=== PATIENT | female | born 1935 | race Caucasian/White ===

== ENCOUNTER 2016-10-09 12:09 | Emergency (ER) | payer MEDICARE, OTHER ==
[~2016-10-09] VITALS: Ht 160 cm; Wt 53.0 kg
[~2016-10-09 12:09] MED LIST: ALDACTONE 25MG25 M1 PO; ARICEPT 5MG PO; ASPIRIN 81M81 MG/TA2 PO; ASPIRIN E.C. 8181 MG PO; AVALIDE 12.5 MG1 TAB PO; AVAPRO300 M1 PO; BISMUTH262 MG SL; CARDIZEM CD 24240 MG PO; CEFTIN 250250 MG/TAB PO; CELEXA 20MG20 MG/TAB PO; CELEXA40 MG PO; CRESTOR5 MG PO; LASIX 20MG TABL20 MG PO; LEVAQUIN 5500 MG/TA1 PO; LEVOXYL0.1 MG PO; LEVOXYL0.125 MG PO; LIPITOR 10MG10 MG PO; LOPRESSOR 225 MG/TAB PO; LUTEIN PO; MULTIVITAMIN1 CTB PO; NITROSTAT0.4 MG/TAB SL; PEPTO BISMOL262 MG PO; PLAVIX 75MG TAB75 MG PO; PRIL40 PO; PRINIVIL5 MG PO; PROTONIX 40MG T40 MG PO; QUESTRAN4 GM/9 GM PO; SYNTHROID0.1 MG/TAB PO; SYNTHROID0.112 MG/T PO; VISION FORMULA1 TAB PO; VITAMIN D31000 IU PO; [UNRECOGNIZED DRUG - CODE] PO
[2016-10-09 12:10] VITALS: BP 150/72; TEMP 97.7
[2016-10-09 13:50] VITALS: PULSE 67
== END 2016-10-09 14:00 | disposition home or self-care (01) ==
LOC: COL.ER 12:09
DX: S09.90XA Unspecified injury of head, initial encounter (principal); S30.0XXA Contusion of lower back and pelvis, initial encounter; S00.03XA Contusion of scalp, initial encounter; S50.812A Abrasion of left forearm, initial encounter; Z79.2 Long term (current) use of antibiotics; W01.198A Fall on same level from slipping, tripping and stumbling with subsequent striking against other object, initial encounter; Y92.008 Other place in unspecified non-institutional (private) residence as the place of occurrence of the external cause

== ENCOUNTER 2016-11-12 09:35 | Emergency (ER) | payer MEDICARE, OTHER ==
[~2016-11-12] VITALS: Ht 160 cm; Wt 50.0 kg
[2016-11-12 09:39] VITALS: BP 127/66; PULSE 66; TEMP 97.5
[2016-11-12] MEDS ORDERED: PERCOCET 325 MG1 TAB PO (09:58)
[2016-11-12] MEDS ORDERED: MIRALAX PA17 GM/Dose PO (09:58)
== END 2016-11-12 12:05 | disposition home or self-care (01) ==
LOC: COL.ER 09:35
DX: K59.00 Constipation, unspecified (principal); Z79.891 Long term (current) use of opiate analgesic; Z95.1 Presence of aortocoronary bypass graft; I51.9 Heart disease, unspecified

== ENCOUNTER → 2017-01-18 | Outpatient (REF) ==
[~2017-01-18] MED LIST changes: +MIRALAX PA17 GM/Dose PO; +PERCOCET 325 MG1 TAB PO
== END ==
LOC: ZCOL.LAB 12:44
DX: Z01.89 Encounter for other specified special examinations (principal)

== ENCOUNTER → 2017-01-19 | Outpatient (REF) | LOC: ZCOL.LAB 10:09 | DX: Z01.89 Encounter for other specified special examinations (principal) ==

== ENCOUNTER → 2017-02-18 | Outpatient (CLI) | payer MEDICARE, OTHER | LOC: COL.RAD 10:03 | DX: R74.8 Abnormal levels of other serum enzymes (principal); Z90.49 Acquired absence of other specified parts of digestive tract ==

== ENCOUNTER 2017-05-22 12:12 | Emergency (ER) | payer MEDICARE, OTHER ==
[~2017-05-22] VITALS: Ht 157.5 cm; Wt 55.9 kg
[2017-05-22 12:20] VITALS: TEMP 97.5
[2017-05-22 13:13] LABS: BASO % 0.6 % (0.0-2.0); EOS # 0.1 (0.0-0.7); EOS % 0.8 % (0-4.0); GRAN # 4.5 (1.4-6.5); GRAN % 67.9 % (42.2-75.2); LYMPH # 1.5 (1.2-3.4); LYMPH % 22.8 % (20.0-51.0); MEAN CELL VOLUME 92 fl (80.0-100.0); MEAN CORPUSCULAR HGB CONC 30 g/dl (33.0-37.0); MEAN PLATELET VOLUME 10.4 fl (7.4-10.4); MONO # 0.5 (0.1-0.6); MONO % 7.6 % (1.7-9.3); PLATELET COUNT 238 K/mm3 (130-400); WHITE BLOOD COUNT 6.6 K/mm3 (4.8-10.8)
[2017-05-22 13:14] LABS: HEMATOCRIT 32.1 % (37.0-47.0); HEMOGLOBIN 9.6 g/dl (12.5-16.0); MEAN CORPUSCULAR HEMOGLOBIN 27 pg (27.0-31.0)
[2017-05-22 13:16] LABS: INR 1.4 (0.8-3.0); PROTHROMBIN TIME 15.2 SECONDS (9.7-12.8)
[2017-05-22 13:19] LABS: PARTIAL THROMBOPLASTIN TIME 35.3 SECONDS (26.0-37.0)
[2017-05-22 13:23] LABS: ADJUSTED CALCIUM 9.2 mg/dL (8.4-10.2); ALBUMIN 3.7 gm/dL (3.5-5.0); BILIRUBIN,TOTAL 0.8 mg/dL (0.0-1.0); CREATININE, serum 1.18 mg/dL (0.52-1.25); POTASSIUM 4.1 mmol/L (3.4-5.0); TOTAL PROTEIN 6.5 gm/dL (6.4-8.2)
[2017-05-22 13:35] LABS: TROPONIN-I 0.031 ng/mL (0.000-0.034)
[2017-05-22 16:54] VITALS: BP 171/87; PULSE 63
== END 2017-05-22 17:07 | disposition home or self-care (01) ==
LOC: COL.ER 12:12
PROVIDERS: Emergency Medicine
DX: J20.9 Acute bronchitis, unspecified (principal); R79.89 Other specified abnormal findings of blood chemistry; I11.0 Hypertensive heart disease with heart failure; I50.9 Heart failure, unspecified; I25.10 Atherosclerotic heart disease of native coronary artery without angina pectoris; E03.9 Hypothyroidism, unspecified; Z86.73 Personal history of transient ischemic attack (TIA), and cerebral infarction without residual deficits; Z79.82 Long term (current) use of aspirin; Z79.02 Long term (current) use of antithrombotics/antiplatelets; Z95.0 Presence of cardiac pacemaker; Z95.2 Presence of prosthetic heart valve
CPT/HCPCS: J1940

== ENCOUNTER → 2018-04-24 | Outpatient (CLI) | payer MEDICARE, OTHER | LOC: COL.RAD 10:30 | DX: R94.5 Abnormal results of liver function studies (principal); R74.0 Nonspecific elevation of levels of transaminase and lactic acid dehydrogenase [LDH]; Z90.49 Acquired absence of other specified parts of digestive tract ==

== ENCOUNTER 2018-07-16 13:44 | Emergency (ER) | payer MEDICARE, OTHER ==
[~2018-07-16] VITALS: Ht 157.5 cm; Wt 54.1 kg
[~2018-07-16 13:44] MED LIST changes: +LEVOXYL0.088 MG PO; -LEVOXYL0.1 MG PO; -LOPRESSOR 225 MG/TAB PO; +TOPROL XL 25MG25 MG PO
[2018-07-16 13:46] VITALS: TEMP 98.7
[2018-07-16 14:55] LABS: BASO % 0.3 % (0.0-2.0); EOS # 0.1 (0.0-0.7); EOS % 1.8 % (0-4.0); GRAN # 5.6 (1.4-6.5); GRAN % 74.9 % (42.2-75.2); HEMOGLOBIN 10.9 g/dl (12.5-16.0); LYMPH # 0.9 (1.2-3.4); LYMPH % 12.1 % (20.0-51.0); MEAN CELL VOLUME 95 fl (80.0-100.0); MEAN CORPUSCULAR HEMOGLOBIN 30 pg (27.0-31.0); MEAN CORPUSCULAR HGB CONC 31 g/dl (33.0-37.0); MEAN PLATELET VOLUME 10.5 fl (7.4-10.4); MONO # 0.8 (0.1-0.6); MONO % 10.6 % (1.7-9.3); PLATELET COUNT 168 K/mm3 (130-400); RED BLOOD COUNT 3.68 M/mm3 (4.10-5.30); REDCELL DISTRIBUTION WIDTH-CV 13.8 % (11.5-14.5)
[2018-07-16 14:57] LABS: HEMATOCRIT 34.8 % (37.0-47.0)
[2018-07-16 14:59] LABS: INR 1.5 (0.8-3.0); PROTHROMBIN TIME 16.6 SECONDS (9.7-12.8)
[2018-07-16 15:08] LABS: ALBUMIN 3.3 gm/dL (3.5-5.0); BILIRUBIN,TOTAL 0.7 mg/dL (0.0-1.0); C-REACTIVE PROTEIN 2.1 mg/dL (0.0-0.9); CALCIUM 8.6 mg/dL (8.4-10.2); CREATININE, serum 1.51 mg/dL (0.52-1.25); POTASSIUM 3.6 mmol/L (3.4-5.0); TOTAL PROTEIN 6.2 gm/dL (6.4-8.2)
[2018-07-16] MEDS ORDERED: ARICEPT10 MG PO (15:51)
[2018-07-16] MEDS ORDERED: SANCTURA20 MG PO (15:52)
[2018-07-16] MEDS ORDERED: ELIQUIS 2.5 PO (15:52)
[2018-07-16 15:59] LABS: COLLECTION METHOD CLEAN CATCH
[2018-07-16] MEDS ORDERED: NAMENDA 10MG TA10 MG PO (15:59)
[2018-07-16] MEDS ORDERED: OCUVITE ADULT 51 SGL PO (16:00)
[2018-07-16 16:18] LABS: MUCOUS Present /lpf; PH 5 (5-8); SQUAMOUS EPITHELIAL 0-2 /hpf; URINE APPEARANCE Clear; URINE BACTERIA Rare /hpf; URINE BILIRUBIN Negative (NEGATIVE); URINE BLOOD 2+ (NEGATIVE); URINE COLOR Yellow; URINE GLUCOSE Negative (NEGATIVE); URINE KETONE Negative (NEGATIVE); URINE LEUKOCYTE ESTERASE Trace (NEGATIVE); URINE NITRATE Negative (NEGATIVE); URINE PROTEIN(semi-quant) Negative (NEGATIVE); URINE RBC 0-2 /hpf; URINE UROBILINOGEN Negative (NEGATIVE)
[2018-07-16] MEDS ORDERED: ANUSOL-HC SUPPO25 MG RC (16:28)
[2018-07-16 16:50] VITALS: BP 155/86; PULSE 60
[2018-07-17] MEDS ORDERED: MACROBID 1100 MG/CAP PO (15:53)
== END 2018-07-16 17:00 | disposition home or self-care (01) ==
LOC: COL.ER 13:44
PROVIDERS: Family Medicine
DX: K92.2 Gastrointestinal hemorrhage, unspecified (principal); K64.8 Other hemorrhoids; I10 Essential (primary) hypertension; I25.10 Atherosclerotic heart disease of native coronary artery without angina pectoris; I50.9 Heart failure, unspecified; Z79.82 Long term (current) use of aspirin; Z79.01 Long term (current) use of anticoagulants
CPT/HCPCS: J2405; J7030; Q9967

== ENCOUNTER 2020-05-19 14:52 | Inpatient (IN) | payer MEDICARE, OTHER ==
[~2020-05-19] VITALS: Ht 165.1 cm; Wt 61.0 kg
[~2020-05-19 14:52] MED LIST changes: +ANUSOL-HC SUPPO25 MG RC; +ARICEPT10 MG PO; +BIDIL 37.5 MG-21 TAB PO; +CARAFATE 1GM1 G PO; +ELIQUIS 2.5 PO; +MACROBID 1100 MG/CAP PO; +METAMUCIL MUL0.52 GM PO; +NAMENDA 10MG TA10 MG PO; +OCUVITE ADULT 51 SGL PO; +SANCTURA20 MG PO
[2020-05-19 16:08] LABS: BASO % 0.4 % (0.0-2.0); EOS % 0.4 % (0-4.0); GRAN # 3.6 (1.4-6.5); GRAN % 66.9 % (42.2-75.2); HEMOGLOBIN 13.7 g/dl (12.5-16.0); LYMPH # 0.7 (1.2-3.4); LYMPH % 13.8 % (20.0-51.0); MEAN CELL VOLUME 101 fl (80.0-100.0); MEAN CORPUSCULAR HEMOGLOBIN 32 pg (27.0-31.0); MEAN CORPUSCULAR HGB CONC 32 g/dl (33.0-37.0); MEAN PLATELET VOLUME 10.6 fl (7.4-10.4); MONO % 18.1 % (1.7-9.3); PLATELET COUNT 122 K/mm3 (130-400); RED BLOOD COUNT 4.26 M/mm3 (4.10-5.30); REDCELL DISTRIBUTION WIDTH-CV 12.5 % (11.5-14.5)
[2020-05-19 16:14] LABS: ALANINE AMINOTRANSFERASE 35 U/L (4-34); ALBUMIN 4.1 gm/dL (3.5-5.0); ALKALINE PHOSPHATASE 67 U/L (50-136); ANION GAP 8 mmol/L (7-16); AST,SGOT 44 U/L (15-37); BILIRUBIN,TOTAL 0.5 mg/dL (0.0-1.0); BLOOD UREA NITROGEN 34 mg/dL (7-17); C-REACTIVE PROTEIN < 0.5 mg/dL (0.0-0.9); CARBON DIOXIDE 27 mmol/L (22-30); CHLORIDE 101 mmol/L (98-107); CREATININE, serum 1.89 (0.52-1.25); GLUCOSE 95 mg/dL (74-106); POTASSIUM 4.3 mmol/L (3.4-5.0); SODIUM 137 mmol/L (137-145); TOTAL PROTEIN 7.3 gm/dL (6.4-8.2)
[2020-05-19 16:16] LABS: COLLECTION METHOD CLEAN CATCH
[2020-05-19 16:22] LABS: TROPONIN-I 0.015 ng/mL (0.000-0.035)
[2020-05-19 16:26] LABS: MUCOUS Present /lpf; PH 5 (5-8); URINE APPEARANCE Cloudy; URINE BACTERIA Moderate /hpf; URINE BILIRUBIN Negative (NEGATIVE); URINE BLOOD 1+ (NEGATIVE); URINE COLOR Yellow; URINE GLUCOSE Negative (NEGATIVE); URINE KETONE Negative (NEGATIVE); URINE LEUKOCYTE ESTERASE 3+ (NEGATIVE); URINE NITRATE Negative (NEGATIVE); URINE PROTEIN(semi-quant) Negative (NEGATIVE); URINE UROBILINOGEN Negative (NEGATIVE)
[2020-05-19] MEDS ORDERED: BUMEX 1MG TA1 MG/TA1 PO (17:06)
[2020-05-19] MEDS ORDERED: DRISDOL50000 IU PO (17:07)
[2020-05-19] MEDS ORDERED: CELEXA40 MG PO (17:07)
[2020-05-19] MEDS ORDERED: ARICEPT10 MG PO (17:07)
[2020-05-19] MEDS ORDERED: FERROUS SU325 MG/TAB PO (17:08)
[2020-05-19] MEDS ORDERED: ISORDIL 20MG20 M1 PO (17:08)
[2020-05-19] MEDS ORDERED: NAMENDA 10MG TA10 MG PO (17:08)
[2020-05-19] MEDS ORDERED: TOPROL XL 50MG50 MG PO (17:09)
[2020-05-19] MEDS ORDERED: K-TAB20 PO (17:10)
[2020-05-19] MEDS ORDERED: FENTANYL 12MCG TD (17:13)
[2020-05-19 18:00] VITALS: BP 123/65; PULSE 59; TEMP 97.9
--- NOTE | 2020-05-19 19:16 | NUR ---
Patient alert and oriented to self. obeys verbal command. on 2l O2 via NC. RUL-wheezing during inhale, other lung tran sound clear. patient incontinent of urine.
--- NOTE | 2020-05-19 19:39 | NUR ---
Received report from Lis,ER nurse that patient have Fentanyl patch with IV fluid. This RN checked. Patient have Fentanyl patch on her lower back, IV NS 60mL/HR. patient appear comfortable in bed. Bed alarm on. Report given to MAX Rivera.
[2020-05-19 20:40] VITALS: BP 162/87; PULSE 59; TEMP 97.5
[2020-05-20 01:34] VITALS: BP 146/87; PULSE 60; TEMP 98
[2020-05-20 04:16] VITALS: BP 149/96; PULSE 60; TEMP 98
--- NOTE | 2020-05-20 08:00 | NUR ---
Pt had uneventful night. She slept the majority of the night, and only woke to the staff entering her room to get vitals or draw blood. Pt is pleasantly forgetful. She denies any pain or discomfort at this time. No further concerns. Report given to MAX Almonte who will continue the care of this patient.
[2020-05-20 08:20] VITALS: BP 122/70; PULSE 59; TEMP 96.7
--- NOTE | 2020-05-20 08:30 | NUR ---
PT PLEASANT, PT APPEARS CONFUSED BUT ANSWERS ORIENTATION QUESTIONS APPROPRIATELY. PT FAMILY UPDATED. PT BRIEF CHANGED AND PERICARE PROVIDED, VITALS TAKEN, MEDICATIONS GIVEN 2 AT A TIME WITH SIPS OF WATER, ASSESSMENT PERFORMED, FLUIDS RUNNING AT 60ML/HR. NO OTHER NEEDS.
[2020-05-20 12:07] VITALS: BP 114/76; PULSE 59; TEMP 97.5
--- NOTE | 2020-05-20 14:43 | NUR ---
NOTIFIED DR. TANG THAT PT'S SON WANTS AN UPDATE.
--- NOTE | 2020-05-20 16:04 | NUR ---
The patient is positive for COVID and has baseline dementia. SW contacted the patient's , Angel, to complete intake. The patient's son, Angel (ph#[phone]), answered the phone. Angel states that his dad is next to him. The patient lives in [place] with her , son (Angel), [id number], and grandson. Angel reports that the patient needs assistance with ADLs and has a walker and wheelchair. Angel states that him and the rest of the family help her with her ADLs. The patient's PCP is Dr. Damion Kenney and he receives his medications from [facility]. Angel reports no difficulties obtaining his meds. The patient's and son report that the patient does not have a DPOA-HC completed. Angel reports that they do not have any concerns about the patient returning back home with them upon discharge. They all went and got tested for COVID yesterday. Angel states that his is a MANAGER PE[employer] and his oldest daughter is an RN. He had no other questions for SW at this time. The patient is currently on 2 liters of oxygen. ANUSHA to continue to follow.
[2020-05-20 16:57] VITALS: BP 106/54; PULSE 55; TEMP 97.8
--- NOTE | 2020-05-20 17:09 | NUR ---
PT PLEASANT, PT PLEASANTLY CONFUSED BUT ANSWERS ORIENTATION QUESTIONS APPROPRIATELY, PT C/O BACK PAIN IN MORNING RESOLVED WITH TYLENOL. PT SWALLOWS PILLS 2 AT A TIME WITH WATER. PT NEURO CHECKS STABLE. PT ON 2L SATTING WELL, NO SOB, PT INC IN BRIEF AND PERICARE PROVIDED. NO OTHER NEEDS AT THIS TIME.
[2020-05-20 20:00] VITALS: BP 142/78; PULSE 59; TEMP 98
--- NOTE | 2020-05-20 20:00 | NUR ---
Assessment complete. Patient complains of mild lower back pain which is treated with Tylenol. She answers all orientation questions correctly but also appears confused, as her conversation is sometimes irrelevant. She is tolerating breathing on room air well and is afebrile.
[2020-05-21 00:26] VITALS: BP 130/62; PULSE 59; TEMP 98.3
[2020-05-21 04:51] VITALS: BP 124/63; PULSE 60; TEMP 98
[2020-05-21 06:59] LABS: ALBUMIN 3.8 gm/dL (3.5-5.0); BILIRUBIN,TOTAL 0.4 mg/dL (0.0-1.0); CALCIUM 8.7 mg/dL (8.4-10.2); CREATININE, serum 1.27 (0.52-1.25); POTASSIUM 4.3 mmol/L (3.4-5.0); TOTAL PROTEIN 6.9 gm/dL (6.4-8.2)
[2020-05-21 08:07] VITALS: BP 127/66; PULSE 81; TEMP 97.8
--- NOTE | 2020-05-21 08:56 | NUR ---
PT PLEASANT, ANSWERS ORIENTATION QUESTIONS APPROPRIATELY, PT DID NOT KNOW CURRENT DAY, SHE GUESSED SATURDAY. PT LUNGS CLEAR, BS PRESENT, IV INTACT W/ NO ERYTHEMA OR DRAINAGE, ASSESSMENT PERFORMED, VITALS REVIEWED, PT UTILIZED BED ROGERS THIS MORNING. C/O PAIN 6/10 IN LOW BACK, TOO EARLY FOR TYLENOL AT THIS TIME. PT GOLD LEAF ROLLER EQUAL, PT ABLE TO HOLD UP ARMS AND LEGS. NO OTHER NEEDS.
--- NOTE | 2020-05-21 10:40 | NUR ---
PT SON UPDATED. ENTERED PT ROOM FOR NEURO CHECK. PT KNEW SHE WAS IN THE HOSPITAL BUT DID NOT KNOW WHETHER SHE WAS IN [place] OR [place]. PT KNEW THE MONTH BUT THOUGHT IT WAS SATURDAY. PT REORIENTED TO CURRENT PLACE AND TIME AND SITUATION. MARKETING PRODUCTION COORDINATOR EQUAL, ALL LIMBS STRONG. NUMBER FOR PT'S DIALED FOR PT IN THE ROOM. NO OTHER NEEDS.
[2020-05-21 12:11] VITALS: BP 122/62; PULSE 63; TEMP 97.5
--- NOTE | 2020-05-21 12:59 | NUR ---
[employer]ant called patient and offered prayer on the phone.
[2020-05-21] MEDS ORDERED: RT Albuterol HFA MDI IH (13:42)
[2020-05-21] MEDS ORDERED: TYLENOL 325MG325 MG PO (13:42)
[2020-05-21] MEDS ORDERED: DECADRON6 MG PO (13:45)
[2020-05-21] MEDS ORDERED: OMNICEF 300MG300 MG PO (13:50)
--- NOTE | 2020-05-21 14:22 | NUR ---
BRIAN, PT , CONTACTED FOR DISCHARGE EDUCATION. PT VERBALLY ACKNOWLEDGED UNDERSTANDING.
[2020-05-21] MEDS ORDERED: CELEXA 20MG20 MG/TAB PO (15:25)
--- NOTE | 2020-05-21 15:26 | NUR ---
PT TAKEN OUT VIA WHEELCHAIR TO PT SON, [place], CAR. PT'S SON GIVEN DISCHARGE EDUCATION PACKET, EDUCATED ON NEW MEDICATIONS AND DR. MCCABE TIMES. EDUCATED ON PERSCRIPTIONS CALLED INTO [facility]. NO OTHER NEEDS. IV DISCONTINUED.
== END 2020-05-21 15:25 | disposition home or self-care (01) | DRG 177 ==
LOC: COL.ER 14:52 → MEDICAL 16:46
PROVIDERS: Emergency Medicine; Physician Assistant; ADMIT Student in an Organized Health Care Education/Training Program
DX: U07.1 COVID-19 (principal); J96.01 Acute respiratory failure with hypoxia; I13.0 Hypertensive heart and chronic kidney disease with heart failure and stage 1 through stage 4 chronic kidney disease, or unspecified chronic kidney disease; I50.20 Unspecified systolic (congestive) heart failure; N39.0 Urinary tract infection, site not specified; I25.10 Atherosclerotic heart disease of native coronary artery without angina pectoris; I48.91 Unspecified atrial fibrillation; E03.9 Hypothyroidism, unspecified; M19.90 Unspecified osteoarthritis, unspecified site; F32.9 Major depressive disorder, single episode, unspecified; R74.01 Elevation of levels of liver transaminase levels; B96.20 Unspecified Escherichia coli [E. coli] as the cause of diseases classified elsewhere; N18.30 Chronic kidney disease, stage 3 unspecified; G89.29 Other chronic pain; G20 Parkinson's disease; H35.30 Unspecified macular degeneration; Z95.2 Presence of prosthetic heart valve; Z90.710 Acquired absence of both cervix and uterus; Z85.3 Personal history of malignant neoplasm of breast; Z86.73 Personal history of transient ischemic attack (TIA), and cerebral infarction without residual deficits; Z90.89 Acquired absence of other organs; Z90.49 Acquired absence of other specified parts of digestive tract; Z95.1 Presence of aortocoronary bypass graft
CPT/HCPCS: 99223-AI; 99232-AI; 99239; J0696; J1100; J7030; J8540